=== PATIENT | male | born 1975 | race Two or more races ===

== ENCOUNTER 2024-09-26 17:23 | Emergency (ER) | payer SELFPAY ==
[~2024-09-26] VITALS: Ht 177.8 cm; Wt 126.3 kg
[2024-09-26] MEDS: IV NORMAL SALINE 1000 ML BAG IV ONE ×2 (17:30→18:09)
[2024-09-26] MEDS ORDERED: diphenhydrAMINE 50 MG/1 ML VIAL ONE (17:45)
[2024-09-26] MEDS ORDERED: ONDANSETRON 4 MG/2 ML VIAL ONE (17:45)
[2024-09-26] MEDS ORDERED: METOCLOPRAMIDE HCL 10 MG/2 ML VIAL ONE (17:46)
[2024-09-26] MEDS: diphenhydrAMINE 50 MG/1 ML VIAL IV ONE (17:54)
[2024-09-26] MEDS: ONDANSETRON 4 MG/2 ML VIAL IV ONE (17:54)
[2024-09-26] MEDS: METOCLOPRAMIDE HCL 10 MG/2 ML VIAL IV ONE (17:54)
[2024-09-26 18:05] LABS: BASOPHILS % (AUTO) 0.4 % (0.0-2.0); EOSINOPHILS # (AUTO) 0.2 K/uL (0.0-0.7); EOSINOPHILS % (AUTO) 1.5 % (0.0-7.0); HEMATOCRIT 42.8 % (36.7-47.1); HEMOGLOBIN 14.5 g/dL (12.5-16.3); LYMPHOCYTES % (AUTO) 40.2 % (20.5-51.5); MEAN CORPUSCULAR HEMOGLOBIN 28.7 uug (23.8-33.4); MEAN CORPUSCULAR HGB CONC 34 g/dL (32.5-36.3); MEAN CORPUSCULAR VOLUME 84.9 fL (73.0-96.2); MONOCYTES # (AUTO) 0.7 K/uL (0.1-1.30); MONOCYTES % (AUTO) 5.4 % (0.0-11.0); NEUTROPHILS # (AUTO) 6.5 K/uL (1.8-8.9); NEUTROPHILS % (AUTO) 52.5 % (38.5-71.5); PLATELET COUNT (AUTO) 242 K/uL (152-348); RED BLOOD CELL COUNT(AUTO) 5.04 MIL/uL (4.06-5.63); RED CELL DISTRIBUTION WIDTH 13.6 % (12.1-16.2); WHITE BLOOD COUNT (AUTO) 12.4 K/uL (3.6-10.2)
[2024-09-26 18:09] LABS: DIFFERENTIAL COMMENT 1
[2024-09-26 18:13] LABS: MAGNESIUM 2.5 mg/dL (1.8-2.4)
[2024-09-26 18:14] LABS: CALCIUM 8.4 mg/dL (8.5-10.1); CARBON DIOXIDE 23 mmol/L (21-32); CHLORIDE 108 mmol/L (98-107); CREATININE 1.2 mg/dL (0.6-1.3); GLUCOSE 126 mg/dL (74-106); POTASSIUM 3.6 mmol/L (3.5-5.1); SODIUM SERUM 143 mmol/L (136-145); UREA NITROGEN, BLOOD 26 mg/dL (7-18)
[2024-09-26 18:24] LABS: *BILIRUBIN,URIN NEGATIVE (NEGATIVE); *CLARITY,URINE CLEAR (CLEAR); *COLOR,URINE LIGHT YELLOW (YELLOW); *KETONES,URINE NEGATIVE (NEGATIVE); *PROTEIN,URINE NEGATIVE (NEGATIVE); *UROBILINOGEN,URINE 0.2 E.U./dl (NORMAL); LEUKOCYTE ESTERASE ,URINE NEGATIVE (NEGATIVE); NITRITE, URINE NEGATIVE (NEGATIVE); UGLUCOSE NEGATIVE (NEGATIVE)
[2024-09-26 18:25] LABS: *BLOOD, URINE TRACE (NEGATIVE)
[2024-09-26 18:27] LABS: ALANINE AMINOTRANSFERASE 37 U/L (16-63); ALBUMIN 4.1 g/dL (3.4-5.0); ALKALINE PHOSPHATASE 126 U/L (50-136); ASPARTATE AMINOTRANSFERASE 22 U/L (15-37); BILIRUBIN,DIRECT 0.1 mg/dL (0.0-0.2); BILIRUBIN,TOTAL 0.4 mg/dL (0.2-1.0); NT-PRO BNP 146 pg/mL (0-125); TOTAL PROTEIN, SERUM 7.6 g/dL (6.4-8.2)
[2024-09-26 18:38] LABS: BACTERIA,URINE NONE SEEN /HPF (NONE SEEN); SQUAMOUS EPITHELIAL CELL,UR FEW /HPF (NONE SEEN); WBC,URINE 0-3 /HPF (0-3)
[2024-09-26 18:41] LABS: *AMPHETAMINE, URINE NEGATIVE (NEGATIVE); *BARBITURATE, URINE NEGATIVE (NEGATIVE); *BENZODIAZEPINE, URINE NEGATIVE (NEGATIVE); *CANNABINOID, URINE NEGATIVE (NEGATIVE); *COCCAINE, URINE NEGATIVE (NEGATIVE); *OPIATE, URINE NEGATIVE (NEGATIVE); *PHENCYCLIDINE SCREEN,URINE NEGATIVE (NEGATIVE); FENTANYL, URINE NEGATIVE (NEGATIVE)
[2024-09-26] MEDS ORDERED: FOLIC ACID 5 MG/ML VIAL IV ONE (18:52)
[2024-09-26] MEDS ORDERED: THIAMINE HCL 200 MG/2 ML VIAL ONE (18:53)
[2024-09-26] MEDS ORDERED: MAGNESIUM SULFATE/D5W 200 ML ONE (18:53)
[2024-09-26] MEDS: THIAMINE HCL 200 MG/2 ML VIAL IV ONE (18:56)
[2024-09-26] MEDS: MAGNESIUM SULFATE/D5W 100 ML IV ONE (18:57)
[2024-09-26] MEDS: FOLIC ACID 5 MG/ML VIAL IV ONE (18:57)
[2024-09-26 21:43] VITALS: BP 144/89; TEMP 98.2; O2SAT 99
== END 2024-09-26 21:43 | disposition home or self-care (01) ==
LOC: ER 17:23
DX: F10.129 Alcohol abuse with intoxication, unspecified (principal); R06.02 Shortness of breath; Y90.0 Blood alcohol level of less than 20 mg/100 ml
CPT/HCPCS: 80076; 80048; 81001; 83880; 83735; 85025; 84484 ×2; 36415; 71045; 93005; 99284; 96361; 96365; 96366; 96375; 80320; 80307; J1200; J3490; J3475; J2765; J2405; J3411; J7040; A4606; A4663; G0480